=== PATIENT | female | born 1990 | race African-American/Black ===

== ENCOUNTER 2019-01-24 21:13 | Inpatient (IN) | payer MEDICAID ==
[~2019-01-24] VITALS: Ht 149.9 cm; Wt 105.2 kg
[~2019-01-24 21:13] MED LIST: CLOB10TA PO; PHEN32.49 PO; TOPI100T68 PO
[2019-01-24 23:28] LABS: Urine Blood Negative /uL (Negative); Urine Mucus FEW (None Seen); Urine Specific Gravity 1.014 (1.001-1.035); Urine WBC 12 /hpf (0 - 5)
[2019-01-24 23:30] LABS: Urine Amorphous Crystal 30 /hpf (None Seen); Urine Bacteria MOD /hpf (None Seen)
[2019-01-25] MEDS ORDERED: SODIUM CHLORIDE 0.9% 500 ML IV ONE (00:43)
[2019-01-25] MEDS ORDERED: LORazepam 2MG/ML-1ML VIAL IV ONE (00:45)
[2019-01-25] MEDS ORDERED: SULFAMETHOX W/TRIMETH(800/160MG) DS TAB PO ONE (01:30)
[2019-01-25 05:08] LABS: Hematocrit 33.9 % (36.0-46.0); Hemoglobin 10.7 g/dL (12.2-16.2); Mean Corpuscular Hemoglobin 23.5 pg (28.0-32.0); Mean Corpuscular Hgb Conc. 31.4 g/dL (32.0-36.0); Mean Corpuscular Volume 74.8 fL (80.0-100.0); Platelet Count (auto) 231 10^3/uL (140-450); Red Blood Cells 4.54 10^6/uL (4.0-5.20); Red Cell Distribution Width 15.7 % (11.8-14.3); White Blood Cell 4.7 10^3/uL (4.4-10.8)
[2019-01-25 05:09] LABS: Band Neutrophils % (manual) 0; Basophils % (manual) 0 (0.0-2.0); Blast Cells 0; Metamyelocytes % 0; Myelocytes % 0; Promyelocytes % 0; Reactive Lymphocytes 0
[2019-01-25 05:26] LABS: Albumin 3.1 g/dL (3.4-5.0); Calcium 7.8 mg/dL (8.5-10.1); Potassium 3.6 mmol/L (3.5-5.1)
[2019-01-25 05:31] LABS: Bilirubin, Total 0.2 mg/dL (0.2-1.0); Total Protein 6.6 g/dL (6.4-8.2)
[2019-01-25 06:19] LABS: Eosinophils % (manual) 1 (0-7); Lymphocytes % (manual) 67 (10.0-50.0); Monocytes % (manual) 2 (0-12)
[2019-01-25] MEDS ORDERED: ONDANSETRON HCL 4 MG/2 ML VIAL IV PRN (06:30)
[2019-01-25] MEDS ORDERED: ACETAMINOPHEN 325 MG TAB PO PRN (06:30)
--- NOTE | 2019-01-25 07:50 | NUR ---
Family/Contact Spoke with patient's mother Talia on the phone. Password of last admission was "[phone]" and password is to be kept the same for this admission. Talia # [phone]. After Talia verified password, all admission questions and patient history verified by patients mother. All questions and concerns addressed. Hospital phone number and ext. provided to Talia.
--- NOTE | 2019-01-25 08:00 | NUR ---
MS admit from [facility] admitted to tele/MS. Patient oriented to MIC AMEZQUITA RN primary RN, unit, room, bed, and unit policies regarding patient care and visiting hours. Patient weighed by bedscale and encouraged to call if they need something. All questions and concerns addressed, patient verbalized understanding. Patient developmentally delay, education needs to be reenforced. Note:
--- NOTE | 2019-01-25 08:04 | NUR ---
IV Patient come for the ER with no IV access.
[2019-01-25] MEDS ORDERED: TOPIRAMATE 100 MG TAB PO SCH (10:00)
--- NOTE | 2019-01-25 10:04 | NUR ---
RE: CALL SPOKE WITH MOTHER, VERIFIED PASSWORD. INDICATED TO THE MOTHER THAT THE PATIENT IS RESTLESS, AND WANTS TO WONDER AROUND INDICATED TO HER SHE NEEDS TO COME TO THE HOSPITAL TO STAY WITH THE PATIENT. MOTHER STATED THAT THEY WILL COME-IN IN ABOUT 1 HOUR. Addendum: 01/25/19 at 1011 by MIC AMEZQUITA RN RN CALLED FOR A SITTER FOR THE MEAN TIME UNTIL THE PATIENT'S MOTHER COMES TO THE HOSPITAL.
--- NOTE | 2019-01-25 10:30 | NUR ---
Mother at bedside.
[2019-01-25] MEDS: TOPIRAMATE 100 MG TAB PO SCH ×2 (10:34→21:42)
[2019-01-25] MEDS: NITROFURANTOIN (MONO) 100 mg CAP PO SCH ×2 (10:34→21:42)
[2019-01-25] MEDS: PHENobarbital 32.4 MG TAB PO SCH (10:37)
--- NOTE | 2019-01-25 15:00 | NUR ---
IV insertion IV access obtained, via clean sterile technique by inserting 22 gauge catheter at RIGHT FOREARM after attempt(s). IV secured properly. No trauma to site. Patient tolerated well. NOTE:
--- NOTE | 2019-01-25 15:34 | NUR ---
MOTHER NO LONGER AT BEDSIDE, WILL BE BACK. BED ALARM ON.
[2019-01-25 17:00] VITALS: BP 130/74
--- NOTE | 2019-01-25 19:48 | NUR ---
While eating in the presence of the sitter pt had a seizure of on a minute. No injuries Vitals stable BP116/91, HR92, SPO2 98 1mg Lorazepam given iv as ordered.
[2019-01-25] MEDS: LORazepam 2MG/ML-1ML VIAL IV PRN ×2 (19:59→20:10)
[2019-01-25 20:05] VITALS: BP 99/53
--- NOTE | 2019-01-25 20:05 | NUR ---
New seizure about 2 min in while sitter and mom at the bed side 1 mg Lorazepam given iv as ordered BP 99/53, HR 71, SPO2 99%.
--- NOTE | 2019-01-25 20:25 | NUR ---
PATIENT HAVING ANOTHER SEIZURE EPISODE OF ABOUT 2 MIN. SITTER ON BEDSIDE, NO INJURIES.
--- NOTE | 2019-01-25 20:28 | NUR ---
PT HAVING ANOTHER SEIZURE OF 1 MIN, SITTER ON THE BEDSIDE. NO INJURIES, PT'S VITALS STABLE BP126/45,HR80,TEMP 98.2, [id number]%
[2019-01-25 20:30] VITALS: BP 126/45
--- NOTE | 2019-01-25 20:40 | NUR ---
CALL FROM HOSPITALIST. PER HOSPITALIST THE NEUROLOGIST DOCTOR BOWEN SHOULD BE NOTIFIED AND ASKED FOR ADVICE.
--- NOTE | 2019-01-25 20:45 | NUR ---
PAGED DOCTOR JESSI
[2019-01-25 20:47] VITALS: BP 110/69
--- NOTE | 2019-01-25 21:15 | NUR ---
CALL FROM DOCTOR BOWEN .DOCTOR BOWEN ORDERED THE TRANSFER TO [facility] AND SEIZURE MEDICATION CHARGE NURSE AND SEVERITY OF ILLNESS COORDINATOR WERE INFORMED.
[2019-01-25] MEDS ORDERED: LORazepam 2MG/ML-1ML VIAL IV PRN (21:30)
--- NOTE | 2019-01-25 21:55 | NUR ---
REPORT GIVEN TO [facility] NURSE CRISTINO.
[2019-01-25 22:10] VITALS: BP 108/73
--- NOTE | 2019-01-25 22:10 | NUR ---
INFORMED HOSPITALIST ABOUT DOCTOR'S BOWEN ORDERS.
--- NOTE | 2019-01-25 23:15 | NUR ---
ADY REPORTS PT HAD A SEIZURE EPISODE OF 15 SECONDS.
[2019-01-25 23:31] VITALS: BP 112/58
[2019-01-26 00:05] VITALS: BP 128/97
--- NOTE | 2019-01-26 00:05 | NUR ---
Initial Assessment Patient received from med-surg and connected to bedside cardiac, BP, and o2 monitoring. Patient has periods of being awake then she will tense her entire body and start snoring for a few seconds followed by her waking up and requesting to watch cartoons or color. Patient has multiple episodes of this but when this occurs she never drops oxygenation but does get tachycardic in the 120's. Patient attempts to pull out her IV, and BP cuff. Patient being continuously re-oriented and 1:1 sitter is at bedside. PIV to RFA intact and patent with no s/s of infiltration or phlebitis noted-flushes easily and is secured properly. Patient is incontinent and is on absorbant pad. Will ensure skin is kept clean and dry. Seizure precautions are intact with padded side rails, suction set up, Ambu readily available, and oxygen on standby. Bed in lowest position, side rails up, bed brakes set, bed alarm set. Patient repositioned and pulled up in bed and made comfortable. No S/S of distress or pain noted at this time. All alarms are audible, all vitals stable. Will continue close monitoring.
--- NOTE | 2019-01-26 00:05 | NUR ---
PT TRANSFERRED TO [facility] WITH THE HOSPITAL BED TO ROOM 63. RN FOR CONTINUING CARE IS CRISTINO AND PT'S CHART WAS HANDED TO HER. AT THE TIME OF TRANSFER PT IS AWAKE, DRAUSY, NOT ALERT AND ORIENTED.SITTER IS ON BEDSIDE VITALS 2330 BP112/31,HR103,RR19, SPO2 99%. ALL BELONGINGS ARE WITH HER.
--- NOTE | 2019-01-26 00:10 | NUR ---
Wound care There are wounds on bilateral feet. Wound photos taken per protocol, sites cleansed and dressed with Optifoam gentle adhesive dressings. Will input wound consult. Patient tolerated well with no C/O pain.
--- NOTE | 2019-01-26 00:15 | NUR ---
Dr. Moreau paged re: continuous intermittent seizures where patient tenses entire body followed by few seconds of snoring then subsequently wakes up. Waiting for call back.
--- NOTE | 2019-01-26 00:20 | NUR ---
Dr. Moreau called back RN informed him of continuous intermittent seizures, amount of Ativan she has received, and overall status of patient. He ordered: -obtain prolactin level now -obtain another prolactin level in the morning -if patient becomes unresponsive sustained then intubate patient -If patient continues with these continuous intermittent seizures, there is no more interventions needed as long as she is responsive in between seizures. Do not need to give Ativan for every seizure unless RN deems necessary. No need to call him again if seizures do not stop throughout the night. -Do not need to call with prolactin levels tonight because we do not have baseline. He states she will view it in the morning RN performed TORB and verified order to be correct. No additional orders received.
--- NOTE | 2019-01-26 01:00 | NUR ---
SCD's applied to BLE per DVT prophylaxis protocol/MD order.
--- NOTE | 2019-01-26 01:30 | NUR ---
Ongoing Assessment Seizures have stopped for a while. Patient is now sitting up in bed coloring on paper and watching television. Patient is awake with no s/s of distress or pain noted. Sitter remains at bedside and all seizure and safety precautions intact. Continue close monitoring.
[2019-01-26 04:00] VITALS: BP 108/68
--- NOTE | 2019-01-26 04:00 | NUR ---
Hygiene Patient incontinent of large amount of clear/yellow urine. Patient given partial CHG bath all linens and gown changed. Patient tolerated well.
--- NOTE | 2019-01-26 06:00 | NUR ---
Hygiene Patient incontinent of large amount of clear/yellow urine. Patient cleansed and linens changed. Patient tolerated well.
--- NOTE | 2019-01-26 07:15 | NUR ---
Report given No changes or incidents to report. patient remains awake, alert with no S/S of distress or pain. IV intact and patent free from any s/s of infiltration or phlebitis. Care endorsed to day shift RN.
[2019-01-26 07:30] VITALS: BP 107/75
--- NOTE | 2019-01-26 07:30 | NUR ---
Opening Shift Note Assumed care of patient, awake and oriented x2, re- oriented to time and situation, able to follow commands0. No S/S of distress/SOB or pain. Seizure and fall precautions in placed. See interventions for complete assessment. Bed locked on low position, side rails up x2, bed alarms on at all times, call aponte within reach, awaiting safety personnel, instructed on POC and to call for assist PRN, will continue to monitor for changes Q1hr and PRN.
--- NOTE | 2019-01-26 07:50 | NUR ---
Dr Moreau at bedside, updated on patient's status. Patient seen and examined. Will carry out new orders.
[2019-01-26] MEDS: PHENobarbital 32.4 MG TAB PO SCH (10:10)
[2019-01-26] MEDS: NITROFURANTOIN (MONO) 100 mg CAP PO SCH (10:10)
[2019-01-26] MEDS: TOPIRAMATE 100 MG TAB PO SCH (10:11)
[2019-01-26 11:30] VITALS: BP 104/61
--- NOTE | 2019-01-26 14:10 | NUR ---
Dr Clayton at bedside, updated on patient's status. Patient seen and examined. Received verbal order to discharge patient @ 1800 today if no seizures because patient has follow - up appointment @ [facility] tomorrow. Orders read back and verified. Will carry out.
[2019-01-26 15:30] VITALS: BP 98/62
[2019-01-26 16:21] VITALS: BP 98/62
--- NOTE | 2019-01-26 18:02 | NUR ---
Discharge instruction, packet and home medication prescription given to patient's mother Nohemi.
--- NOTE | 2019-01-26 18:30 | NUR ---
Patient eating dinner, fed by mother. Aspiration precaution in place.
--- NOTE | 2019-01-26 18:47 | NUR ---
IV removal IV DC'd with sterile technique, catheter fully intact. Pressure dressing applied to site. Patient tolerated procedure well. Discharged with aftercare instructions per MD.
--- NOTE | 2019-01-26 18:47 | NUR ---
Discharge instructions given as ordered. Encourage to follow up at [facility] tomorrow as scheduled. All questions and concerns addressed. Patient's mother verbalized understanding. Medication reconciliation form completed and copy given to patient. Patient taken to vehicle via wheelchair with all personal belongings, accompanied by staff and mother Alix. No distress noted at time of departure.
== END 2019-01-26 18:55 | disposition home or self-care (01) | DRG 53 ==
LOC: ER 21:13 → EDBD 21:13 → OVERFLOW 01-25 06:29 → EAST 01-25 07:45 → DOU IN ICU 01-26 00:03
PROVIDERS: ADMIT Nurse Practitioner Family; ATTEND Internal Medicine
DX: G40.201 Localization-related (focal) (partial) symptomatic epilepsy and epileptic syndromes with complex partial seizures, not intractable, with status epilepticus (principal); E66.01 Morbid (severe) obesity due to excess calories; N39.0 Urinary tract infection, site not specified; E86.0 Dehydration; F79 Unspecified intellectual disabilities; G43.909 Migraine, unspecified, not intractable, without status migrainosus; Z79.899 Other long term (current) drug therapy; Z80.3 Family history of malignant neoplasm of breast; Z68.42 Body mass index [BMI] 45.0-49.9, adult; Z88.1 Allergy status to other antibiotic agents; R62.50 Unspecified lack of expected normal physiological development in childhood
CPT/HCPCS: 36415; 70450; 80053; 80184; 81001; 84146; 85007; 85027; 87081; 87086; 94761; 96374; G0378

== ENCOUNTER 2020-03-30 15:02 | Inpatient (IN) | payer MEDICARE, MEDICAID ==
[~2020-03-30] VITALS: Ht 152.4 cm; Wt 97.0 kg
[~2020-03-30 15:02] MED LIST changes: -PHEN32.49 PO; -TOPI100T68 PO
[2020-03-30] MEDS ORDERED: LORazepam 2MG/ML-1ML VIAL IV ONE ×2 (15:45→21:00)
[2020-03-30 16:43] LABS: Basophils # (auto) 0 10 ^3/uL (0-0.2); Eosinophils # (auto) 0 10 ^3/uL (0-0.8); Neutrophils # (auto) 5.1 10 ^3/uL (1.6-8.6); Red Blood Cells 4.69 10^6/uL (4.0-5.20)
[2020-03-30 16:44] LABS: Basophils % (auto) 0.4 % (0.0-2.0); Eosinophils % (auto) 0.6 % (0.0-7.0); Hematocrit 34.2 % (36.0-46.0); Hemoglobin 10.7 g/dL (12.2-16.2); Lymphocytes % (auto) 16.2 % (10.0-50.0); Mean Corpuscular Hemoglobin 22.9 pg (28.0-32.0); Mean Corpuscular Hgb Conc. 31.4 g/dL (32.0-36.0); Monocytes # (auto) 0.2 10 ^3/uL (0-1.3); Monocytes % (auto) 3.7 % (0.0-12.0); Neutrophils % (auto) 79.1 % (37.0-80.0); Nucleated Red Blood Cells % 0.2 %; Platelet Count (auto) 147 10^3/uL (140-450); Red Cell Distribution Width 15.4 % (11.8-14.3); White Blood Cell 6.4 10^3/uL (4.4-10.8)
[2020-03-30 16:47] LABS: Alcohol, Urine < 3.0 mg/dL (0-10); Amphetamine Screen, Urine NEGATIVE (NEGATIVE); Barbiturate Scree,Urine POSITIVE (NEGATIVE); Benzodiazephine Screen, Urine POSITIVE (NEGATIVE); Cannabinoid Screen, Urine NEGATIVE (NEGATIVE); Cocaine Screen, Urine NEGATIVE (NEGATIVE); Opiate Scree,Urine NEGATIVE (NEGATIVE); Phencyclidine Screen, Urine NEGATIVE (NEGATIVE)
[2020-03-30 17:06] LABS: Alanine Aminotransferase 79 U/L (13-56); Albumin 2.8 g/dL (3.4-5.0); Anion Gap 5 (5-15); Aspartate Aminotransferase 63 U/L (15-37); BUN/Creatinine Ratio 18.2; Blood Alcohol < 3.0 mg/dL (0-5); Blood Urea Nitrogen 10 mg/dL (7-18); Calcium 8.3 mg/dL (8.5-10.1); Carbon Dioxide 23 mmol/L (21-32); Chloride 115 mmol/L (98-107); GFR African American 171 mL/min; GFR Non-African American 141 mL/min; Glucose 71 mg/dL (74-106); Magnesium 1.6 mg/dL (1.6-2.6); Potassium 3.9 mmol/L (3.5-5.1); Sodium 143 mmol/L (136-145)
[2020-03-30 17:09] LABS: Alkaline Phosphatase 84 U/L (45-117); Bilirubin, Total 0.2 mg/dL (0.2-1.0); Total Protein 6.8 g/dL (6.4-8.2)
[2020-03-30] MEDS ORDERED: HYDROcodone-ACET 5/325MG TAB PO PRN (19:30)
[2020-03-30] MEDS ORDERED: PIPERACILLIN-TAZOB 3.375GM 100 ML IV SCH (19:30)
[2020-03-30] MEDS ORDERED: MORPHINE SULF INJ 2 MG/ML SYRINGE 1ML IV PRN ×2 (19:30)
[2020-03-30] MEDS ORDERED: DOCUSATE SOD 100 MG CAP PO PRN (19:30)
[2020-03-30] MEDS ORDERED: NITROGLYCERIN 0.4 MG SL TAB SL PRN (19:30)
[2020-03-30] MEDS ORDERED: ALUM & MAG HYDROX-SIMETH LIQ(MAALOX) 30 ML PO PRN (19:30)
[2020-03-30] MEDS ORDERED: ONDANSETRON HCL 4 MG/2 ML VIAL IV PRN (19:30)
[2020-03-30] MEDS ORDERED: ACETAMINOPHEN 325 MG TAB PO PRN (19:30)
[2020-03-30] MEDS: SODIUM CHLORIDE 0.9% 1,000 ML IV SCH (19:35)
[2020-03-30] MEDS ORDERED: PIPERACILLIN-TAZOB 3.375GM 100 ML IV ONE (20:11)
[2020-03-30] MEDS ORDERED: LORazepam 2MG/ML-1ML VIAL ONE (20:40)
[2020-03-30] MEDS ORDERED: LORazepam 2MG/ML-1ML VIAL IV PRN (21:15)
--- NOTE | 2020-03-30 21:30 | NUR ---
MS admit from ER [facility] admitted to tele/MS for Seizure disorder after SBAR received. Patient sleeping but responsive to painful stimuli but does not open eyes to KENNY BHAGAT RN primary RN, unit, room, bed, and unit policies regarding patient care and visiting hours. Patient weighed by bedscale and encouraged to call if they need something. All questions and concerns addressed, patient verbalized understanding. Note:
--- NOTE | 2020-03-30 21:53 | NUR ---
SEIZURE PATIENT HAD A 90 SEC SEIZURE, SEIZURE PRECAUTIONS MAINTIANED.
[2020-03-31 01:38] LABS: Urine Bacteria FEW /hpf (None Seen); Urine Blood 2+ /uL (Negative); Urine Mucus FEW (None Seen); Urine Specific Gravity 1.022 (1.001-1.035); Urine WBC 10 /hpf (0 - 5)
[2020-03-31 05:00] VITALS: BP 103/65
[2020-03-31] MEDS: PIPERACILLIN-TAZOB 3.375GM 100 ML IV SCH ×4 (05:26→23:23)
[2020-03-31] MEDS ORDERED: CLOB10TA2 PO (08:13)
[2020-03-31] MEDS ORDERED: TOPI100T29 PO (08:18)
[2020-03-31] MEDS ORDERED: TOPI200T37 PO (08:18)
[2020-03-31] MEDS ORDERED: CLOB20TA PO (08:18)
[2020-03-31] MEDS ORDERED: PHEN32.44 PO ×2 (08:18→08:20)
--- NOTE | 2020-03-31 08:30 | NUR ---
Patient home medications confirmed by patient's mom via phone. Medications entered into [facility]
[2020-03-31 09:00] VITALS: BP 110/74
[2020-03-31] MEDS: ENOXAPARIN SOD 40 MG/0.4 ML SYRINGE SC SCH (10:07)
[2020-03-31 10:16] LABS: Basophils # (auto) 0 10 ^3/uL (0-0.2); Basophils % (auto) 0.3 % (0.0-2.0); Eosinophils # (auto) 0.1 10 ^3/uL (0-0.8); Eosinophils % (auto) 1.3 % (0.0-7.0); Hematocrit 34.9 % (36.0-46.0); Hemoglobin 10.7 g/dL (12.2-16.2); Lymphocytes # (auto) 1.3 10 ^3/uL (0.4-5.4); Lymphocytes % (auto) 29.5 % (10.0-50.0); Mean Corpuscular Hemoglobin 22.9 pg (28.0-32.0); Mean Corpuscular Hgb Conc. 30.6 g/dL (32.0-36.0); Mean Corpuscular Volume 74.7 fL (80.0-100.0); Monocytes # (auto) 0.3 10 ^3/uL (0-1.3); Monocytes % (auto) 5.6 % (0.0-12.0); Neutrophils # (auto) 2.9 10 ^3/uL (1.6-8.6); Neutrophils % (auto) 63.3 % (37.0-80.0); Nucleated Red Blood Cells % 0.1 %; Platelet Count (auto) 126 10^3/uL (140-450); Red Blood Cells 4.67 10^6/uL (4.0-5.20); Red Cell Distribution Width 15.8 % (11.8-14.3); White Blood Cell 4.5 10^3/uL (4.4-10.8)
[2020-03-31 10:25] LABS: Albumin 2.5 g/dL (3.4-5.0); Calcium 8.4 mg/dL (8.5-10.1); Potassium 3.6 mmol/L (3.5-5.1)
[2020-03-31 10:28] LABS: BUN/Creatinine Ratio 17.6; Bilirubin, Total 0.2 mg/dL (0.2-1.0); Total Protein 6.7 g/dL (6.4-8.2)
[2020-03-31] MEDS: SODIUM CHLORIDE 0.9% 1,000 ML IV SCH (11:40)
--- NOTE | 2020-03-31 11:59 | NUR ---
WOUND CARE NOTE: Wound care in to see patient per wound care request regarding low Miguel score of 11 and skin integrity issue that are noted present on admission. Bedside nurse took photograph of patient's wound upon admission for reference. Patient is 29 years old female with admitting diagnosis of Seizure Disorder. Patient is resting in bed in Rm. 294A. Her eyes are closed, respirations even and unlabored. Patient appears to be in no pain using Amin Salgado Faces Pain Scale. Patient needs assistance in turning and repositioning. Skin wound assessment done with the assistance of patient' s nurse, SAGRARIO Jones. Noted open full thickness wound to patient's R posterior thigh. Wound measuring 0.8x 9cm, wound bed is red with pink arthur wound, scant serous drainage noted, no odor noted. No family at bedside to give information regarding patient's wound.(Etiology unknown). Cleansed patient's Rt. posterior thigh wound with NS,patted dry with gauze, applied Thera honey gel and covered with Opti foam gentle dressing. Two dry intact scabs also noted to patient's proximal R posterior thigh, area is clean and dry, left open to air. Patient tolerated examination well, repositioned for comfort facing her L side, redistributed pressure points with pillows. Bed in low position, call aponte within reach, bed alarm on. RECOMMENDATION: Nursing to continue with EOD/PRN dressing change to Rt posterior thigh wound per MD order, BID/PRN cleaning and application of Barrier cream to sacral, buttocks as preventative, dietary consult, frequent turning and repositioning schedule as condition permits, redistribute pressure points with pillows, continue monitoring by wound care while patient is hospitalized. Addendum: 03/31/20 at 1555 by Agatha Gutierrez RN Amended: Links added.
[2020-03-31 13:00] VITALS: BP 120/69
[2020-03-31 17:00] VITALS: BP 119/70
--- NOTE | 2020-03-31 20:26 | NUR ---
open note assumed care of pt, upon entering room pt eyes are closed, breathing is even and unlabored. pt on 2L nc no s/s distress noted. pt bed locked, low and 2x rails up and padded per seizure precautions. pt call light in reach. this nurse to round q1hr and prn. bed alarm active.
--- NOTE | 2020-03-31 20:56 | NUR ---
paged dr garcia for clarification of PO medication orders. pt unable to take direction.
[2020-03-31 22:00] VITALS: BP 116/81
[2020-03-31] MEDS ORDERED: TOPIRAMATE 100 MG TAB PO SCH (22:00)
[2020-03-31] MEDS: PHENobarbital SODIUM 65 MG/ML VL IV SCH (23:03)
[2020-04-01] MEDS: SODIUM CHLORIDE 0.9% 1,000 ML IV SCH ×2 (04:54→21:38)
[2020-04-01 05:00] VITALS: BP 118/86
[2020-04-01] MEDS: PHENobarbital SODIUM 65 MG/ML VL IV SCH ×3 (05:35→21:38)
[2020-04-01] MEDS: PIPERACILLIN-TAZOB 3.375GM 100 ML IV SCH ×3 (05:35→18:43)
--- NOTE | 2020-04-01 07:30 | NUR ---
Opening Shift Note Assumed care of patient, upon entering room patient is resting with eyes closed. Respirations are even and unlabored. No S/S of distress/SOB or pain. Seizure precautions are in place. Bed alarm on for safety. Bed is low, locked with 2x padded side rails. Call light is within reach. Instructed on POC and to call for assist PRN, will continue to monitor for changes Q1hr and PRN.
[2020-04-01 09:00] VITALS: BP 122/67
[2020-04-01] MEDS ORDERED: PHENobarbital 32.4 MG TAB PO SCH (10:00)
[2020-04-01] MEDS: ENOXAPARIN SOD 40 MG/0.4 ML SYRINGE SC SCH (10:11)
--- NOTE | 2020-04-01 11:50 | NUR ---
Dr. Morillo at bedside Dr. Morillo rounding at this time. No new orders received. Will continue to monitor.
--- NOTE | 2020-04-01 12:08 | NUR ---
SWALLOW EVALUATED. PATIENT HAS NATURAL TEETH UPPER AND LOWER. PATIENT IS INTELLECTUALLY DISABLED AND HAD DIFFICULTY FOLLOWING ONE STEP COMMANDS. PATIENT ABLE TO TOLERATE PUREE DIET TEXTURE WITH THIN LIQUIDS WITH NO OVERT SIGNS OR SYMPTOMS OF ASPIRATION. PATIENT WILL REQUIRE MAX ASSISTANCE WITH FEEDING. NURSING NOTIFIED.
--- NOTE | 2020-04-01 12:17 | NUR ---
Nutrition Consult/assessment Notes please see attached link for complete assessment Est energy needs ABW 71 [id number] kcal (17-20 kcal/kg ABW) Est protein needs: 71-78gm (1.0-1.1g/kg ABW) Addendum: 04/01/20 at [address] Amended: Links added.
[2020-04-01 13:00] VITALS: BP_SYST 139; BP_SYST 141; BP_DIAS 80; BP_DIAS 89
--- NOTE | 2020-04-01 13:50 | NUR ---
Attempted PT eval, pt is very lethargic. She opened her eyes to verbal commands but immediately closed them and does not respond to questions. RN notified. Will attempt again tomorrow.
--- NOTE | 2020-04-01 14:00 | NUR ---
ELECTROENCEPHALOGRAM. UNABLE TO COMPLETE EEG. PT REMOVED LEADS UPON SETUP AND DOES NOT FOLLOW VERBAL COMMANDS. PRIMARY RN CAROLE SEO.
[2020-04-01 17:00] VITALS: BP 115/73
--- NOTE | 2020-04-01 17:07 | NUR ---
assessment Patient is a 29 year old female who is developmentally delayed. Per patients mother Jerica prior to admission patient resided home with her and family and functioned with family assistance. Per Jerica Patient has a wheelchair and a fww for home use. Patients PCP is at the [facility] in [place]. I informed Jerica patient has a ss consult for home health for med management. Jerica agrees and informed me she wants [facility] health Dr Morillo suggested to her. MD order has been sent to [place]. Per [facility] service will start 24 to 48 hours of discharge. Jerica has been notified. I will continue to monitor and follow up as appropriate. Jerica verbalized understanding and agreed to discharge plan home. Addendum: 04/01/20 at 1748 by Danette SCHMIDT Amended: Links added.
--- NOTE | 2020-04-01 19:35 | NUR ---
OPEN NOTE assumed care of pt. upon entering room pt awake and alert. pt on room air no distress noted or expressed. pt is able to say her name and says "no" when asked if having any pain. pt assisted to eat her meal, pt consumed 25 percent of her tray without any issue. was able to drink water as well without issue. pt bed locked, low and 2x rails up. pt repositioned and this nurse will do so q2hr and prn. pt has alvarez in place draining clear yellow, secured, below the waist. bed alarm active. pt says "no" when asked if she wants or needs any thing else right now. this nurse to round q1hr and prn. this nurse showed patient how to press call light, whenever she wants to talk to me.
[2020-04-01 19:38] VITALS: BP 120/82
--- NOTE | 2020-04-01 21:46 | NUR ---
pt asked to speak with mom, this nurse dialed and pt spoke with mother for few minutes. no distress noted. continue to monitor.
[2020-04-02] MEDS: PIPERACILLIN-TAZOB 3.375GM 100 ML IV SCH ×4 (00:13→18:11)
[2020-04-02 05:41] VITALS: BP 115/73
[2020-04-02] MEDS: PHENobarbital SODIUM 65 MG/ML VL IV SCH ×3 (05:44→22:08)
--- NOTE | 2020-04-02 07:30 | NUR ---
Opening Shift Note Assumed care of patient, awake and alert. Respirations are even and unlabored. No S/S of distress/SOB or pain. Seizure precautions are in place. Bed alarm on for safety. Bed is low, locked with 2x padded side rails. Call light is within reach. Instructed on POC and to call for assist PRN, will continue to monitor for changes Q1hr and PRN.
[2020-04-02 09:00] VITALS: BP 107/64
[2020-04-02] MEDS: ENOXAPARIN SOD 40 MG/0.4 ML SYRINGE SC SCH (09:08)
[2020-04-02 13:00] VITALS: BP 109/79
[2020-04-02] MEDS: SODIUM CHLORIDE 0.9% 1,000 ML IV SCH (14:10)
--- NOTE | 2020-04-02 14:30 | NUR ---
Dr. Morillo at bedside Discussing plan of care with patient and this RN. Patient to possibly discharge home tomorrow. Will update primary RN. Will continue to monitor Q1 hour and PRN.
[2020-04-02 17:03] VITALS: BP 100/70
--- NOTE | 2020-04-02 18:34 | NUR ---
Cleared from Neurology Per Dr. Moreau, patient is cleared for discharge. Will continue to monitor.
--- NOTE | 2020-04-02 20:00 | NUR ---
Opening Shift Note Assumed care of patient, awake and alert. Patient noted yelling for her mother and stating she wants to go home. Patient informed that her mother would be here tomorrow to take her home. Patient was able to understand. No distress or seizure activity noted. Side rails padded. Will continue to monitor for changes Q1hr and PRN.
[2020-04-02 22:00] VITALS: BP 114/67
[2020-04-03 05:33] VITALS: BP 114/67
[2020-04-03] MEDS: SODIUM CHLORIDE 0.9% 1,000 ML IV SCH (06:14)
[2020-04-03] MEDS: PIPERACILLIN-TAZOB 3.375GM 100 ML IV SCH ×3 (06:14→14:01)
[2020-04-03] MEDS: PHENobarbital SODIUM 65 MG/ML VL IV SCH ×2 (06:14→14:01)
--- NOTE | 2020-04-03 07:00 | NUR ---
Patient awake; no acute distress noted. No seizure activity. Patient conversing and verbalizing wanting to going home to be with her mother. Patient's status endorsed to AM RN.
[2020-04-03 09:00] VITALS: BP 103/69
--- NOTE | 2020-04-03 09:30 | NUR ---
Pt refused to get OOB for PT treatment. Will attempt again later.
[2020-04-03] MEDS: ENOXAPARIN SOD 40 MG/0.4 ML SYRINGE SC SCH (09:54)
[2020-04-03 13:00] VITALS: BP 154/71
[2020-04-03 13:26] VITALS: BP 103/59
--- NOTE | 2020-04-03 13:54 | NUR ---
Discharge Attempted to call Talia (mom) and inform her of discharge order. No answer and unable to leave voicemail due to mailbox being full. Will attempt again later.
--- NOTE | 2020-04-03 15:16 | NUR ---
Discharge instructions given as ordered. Encourage to follow up with PMD as instructed. All questions and concerns addressed. Patient verbalized understanding. IV removed with catheter intact, pressure dressing applied, alvarez catheter removed. Patient taken to vehicle via wheelchair with all personal belongings, accompanied by staff. No distress noted at time of departure. Talia (mom) provided with discharge information. All questions answered.
== END 2020-04-03 15:14 | disposition home health service (06) | DRG 101 ==
LOC: ER 15:02 → EDBD 15:02 → OVERFLOW 15:03 → WEST WING 21:34
PROVIDERS: ADMIT Internal Medicine; ATTEND Internal Medicine
DX: G40.909 Epilepsy, unspecified, not intractable, without status epilepticus (principal); N39.0 Urinary tract infection, site not specified; F79 Unspecified intellectual disabilities; E66.9 Obesity, unspecified; Z88.1 Allergy status to other antibiotic agents; Z80.3 Family history of malignant neoplasm of breast; Z82.0 Family history of epilepsy and other diseases of the nervous system; Z82.5 Family history of asthma and other chronic lower respiratory diseases; Z91.14 Patient's other noncompliance with medication regimen; Z68.34 Body mass index [BMI] 34.0-34.9, adult
CPT/HCPCS: 36415; 70450; 71045; 80053; 80184; 80307; 80320; 81001; 81025; 83735; 84443; 85025; 87086; 92610; 93005; 96374; 96376; 97163; G0378; J2543